=== PATIENT | male | born 1985 | race Caucasian/White ===

== ENCOUNTER 2019-01-26 19:37 | Emergency (ER) | payer SELFPAY ==
--- NOTE | 2019-01-26 19:59 | Emergency Department Report ---
Blank Doc - Documentation Documentation: C/O left foot pain and actively bleeding after heavy object fell on left foot. This initial assessment diagnostic orders/clinical plan/treatment (s) is/Are subject change based on patient's health status, clinical progression and re- assessment by fellow clinical providers in the ED. Further treatment and work-up at subsequent clinical providers discretion. Patient/guardians urged not to elope from s their condition may be serious if not clinically assessed and managed. Inital order include:
[2019-01-26] MEDS ORDERED: XYLOCAINE 1% 20 mL INFILTRATI ONE (20:45)
[2019-01-26] MEDS ORDERED: NACL 0.9% IR ONE ×2 (20:45)
[2019-01-26] MEDS ORDERED: ZOFRAN IV ONE (20:46)
[2019-01-26] MEDS ORDERED: SUBLIMAZE IV ONE (20:46)
[2019-01-26] MEDS ORDERED: NACL 0.9% 500 ML IR ONE ×2 (20:47→20:52)
[2019-01-26] MEDS ORDERED: XYLOCAINE 1% 20 mL ONE (20:48)
[2019-01-26] MEDS ORDERED: MARCAINE 0.25% INFILTRATI ONE (20:48)
[2019-01-26] MEDS ORDERED: ZOFRAN ONE (20:50)
[2019-01-26] MEDS ORDERED: SUBLIMAZE ONE (20:51)
--- NOTE | 2019-01-26 20:51 | Emergency Department Report ---
HPI - General Chief Complaint: Extremity Injury, Lower Time Seen by Provider: 01/26/19 19:54 - HPI HPI: Room 6 The patient is a 33-year-old male presenting with chief complaint of right toe pain. The patient states pallet fell and landed on his right foot this evening at approximately 17:15. Patient is uncertain of the weight of the pelvis states it weighed "a lot." Patient only complains of pain in the right foot. Patient gives his pain a score of 7-8/10 Location: Right foot Duration: [See above] Quality: Pain Severity:7-8/10 Modifying factors: [see above] Context: [see above] Mode of transportation: [not driving] ED Past Medical Hx - Past Medical History Previous Medical History?: No - Surgical History Past Surgical History?: No - Family History Family history: no significant - Social History Smoking Status: Current Some Day Smoker Substance Use Type: Alcohol - Medications Home Medications: Home Medications Medication Instructions Recorded Confirmed Last Taken Type Cephalexin [Keflex] 500 mg PO QID #40 capsule 01/26/19 Unknown Rx HYDROcodone/APAP 5-325 [[place] 1 - 2 each PO Q6HR PRN #30 tablet 01/26/19 Unknown Rx 5/325] Ibuprofen [Motrin 800 MG tab] 800 mg PO Q8HR PRN #20 tablet 01/26/19 Unknown Rx ED Review of Systems ROS: Stated complaint: FOOT INJURY Other details as noted in HPI Constitutional: no symptoms reported Eyes: denies: eye pain ENT: denies: throat pain Respiratory: no symptoms reported Cardiovascular: denies: chest pain Endocrine: no symptoms reported Gastrointestinal: denies: abdominal pain Genitourinary: denies: dysuria Musculoskeletal: arthralgia, myalgia Skin: other (laceration) Neurological: denies: headache Physical Exam - Physical Exam Vital Signs: Vital Signs 01/26/19 19:55 Temperature 98.1 F Pulse Rate 73 Respiratory 18 Rate Blood Pressure 128/74 O2 Sat by Pulse 100 Oximetry Physical Exam: GENERAL: The patient is well-developed well-nourished male lying on stretcher not appearing to be in acute distress. [] HEENT: Normocephalic. Atraumatic. Extraocular motions are intact. Patient has moist mucous membranes. NECK: Supple. Trachea midline CHEST/LUNGS: There is no respiratory distress noted. HEART/CARDIOVASCULAR: Regular. There is no tachycardia. SKIN:There is no diaphoresis. NEURO: The patient is awake, alert, and oriented. The patient is cooperative. The patient has no focal neurologic deficits. The patient has normal speech MUSCULOSKELETAL: There is minimal deformity of the right great toe ED Course Vital Signs 01/26/19 19:55 Temperature 98.1 F Pulse Rate 73 Respiratory 18 Rate Blood Pressure 128/74 O2 Sat by Pulse 100 Oximetry - Laceration /Wound Repair Left Toe Wound Location: lower extremity Irrigated w/ Saline (ccs): 500 Betadine Prep?: Yes Anesthesia: 1% Lidocaine Volume Anesthetic (ccs): 9 (lidocaine 1% mixed with bupivacaine 0.25% in a 1:1 ratio) Wound Repaired With: sutures Suture Size/Type: 4:0, nylon Number of Sutures: 10 Layer Closure?: No Sterile Dressing Applied?: Yes ED Medical Decision Making - Radiology Data Radiology results: report reviewed (left foot x-ray), image reviewed (left foot x-ray) interpreted by me: Left foot a-[id number] tuft fracture of the left great toe. Tuft fracture middle toe Findings [facility] [address] [place] [address] XRay Report Signed Patient: ANNIA BRADSHAW MR#: [id number] : 1985 Acct:[id number] Age/Sex: 33 / M ADM Date: 01/26/19 Loc: ED Attending Dr: Ordering Physician: MABLE CARPIO Date of Service: 01/26/19 Procedure(s): XR foot 2V LT Accession Number(s): [id number] cc: MABLE CARPIO Fluoro Time In Minutes: FINAL REPORT PROCEDURE: XR FOOT 2V LT TECHNIQUE: foot radiographs, AP, lateral, and oblique views. HISTORY: object crush foot active bleeding COMPARISON: No prior studies are available for comparison. FINDINGS: Fracture (s) and/or Dislocation(s): Acute comminuted fractures are noted involving the distal phalanges of 1st through 3rd toes. There is displacement of the fracture fragments up to 4 millimeters. Alignment: Normal. Joint space(s): Normal. Soft tissues: Normal. Bone mineralization: Normal. Foreign bodies: None. Calcaneal spurring: None. IMPRESSION: Acute comminuted fractures of 1st through 3rd terminal phalanges Transcribed By: [facility] [place] Dictated By: DESTINY YAO Electronically Authenticated By: DESTINY YAO Signed Date/Time: 01/26/192123 DD/ 22 TD/TT: 01/26/192122 - Differential Diagnosis tuft fracture Critical care attestation.: If time is entered above; I have spent that time in minutes in the direct care of this critically ill patient, excluding procedure time. ED Disposition Clinical Impression: Toe laceration, Fracture of distal phalanx of toe of left foot, Fracture of distal phalanx of left great toe Disposition: - TO HOME OR SELFCARE Is pt being admited?: No Does the pt Need Aspirin: No Condition: Stable Instructions: Suture Care (ED), Laceration (ED), Toe Fracture (ED) Additional Instructions: Return to the emergency department immediately should you develop worsening symptoms, fever, inability to tolerate food or liquid or any other concerns. Prescriptions: Cephalexin [Keflex] 500 mg PO QID #40 capsule HYDROcodone/APAP 5-325 [[place] 5/325] 1 - 2 each PO Q6HR PRN #30 tablet PRN Reason: Pain Ibuprofen [Motrin 800 MG tab] 800 mg PO Q8HR PRN #20 tablet PRN Reason: Pain, Moderate (4-6) Referrals: GRAY BEAULIEU MD [Staff Physician] - [place] (Dr. Beaulieu is an orthopedic surgeon. Please follow up in further evaluation) Time of Disposition: 21:50
[2019-01-26] MEDS ORDERED: ceFAZolin 2 GM in NACL 0.9% 100 ML IV ONE (21:00)
--- NOTE | 2019-01-26 21:24 | XRay Report ---
FINAL REPORT PROCEDURE: XR FOOT 2V LT TECHNIQUE: foot radiographs, AP, lateral, and oblique views. HISTORY: object crush foot active bleeding COMPARISON: No prior studies are available for comparison. FINDINGS: Fracture (s) and/or Dislocation(s): Acute comminuted fractures are noted involving the distal phalang es of 1st through 3rd toes. There is displacement of the fracture fragments up to 4 millimeters. Alignment: Normal. Joint space(s): Normal. Soft tissues: Normal. Bone mineralization: Normal. Foreign bodies: None. Calcaneal spurring: None. IMPRESSION: Acute comminuted fractures of 1st through 3rd terminal phalanges
[2019-01-26 22:50] VITALS: BP 115/73
== END 2019-01-26 22:48 | disposition home or self-care (01) ==
LOC: ED 19:37
DX: S91.112A Laceration without foreign body of left great toe without damage to nail, initial encounter (principal); S92.422A Displaced fracture of distal phalanx of left great toe, initial encounter for closed fracture; W20.8XXA Other cause of strike by thrown, projected or falling object, initial encounter; Y93.89 Activity, other specified; Y92.89 Other specified places as the place of occurrence of the external cause; Y99.8 Other external cause status; F17.200 Nicotine dependence, unspecified, uncomplicated; Z91.013 Allergy to seafood
CPT/HCPCS: 12002; 73620; 96365; 96375; 99284; J0690; J2405; J3010; 96374